=== PATIENT | male | born 1965 | race Caucasian/White ===

== ENCOUNTER 2016-09-22 09:20 | Outpatient (CLI) | payer MEDICAID | END 2016-09-22 09:21 | disposition home or self-care (01) | DX: R53.83 Other fatigue (principal); D64.9 Anemia, unspecified ==

== ENCOUNTER 2016-10-07 10:01 | Emergency (ER) | payer MEDICAID ==
[2016-10-07] MEDS ORDERED: SODIUM CHLORIDE 0.9% 1,000 ML IV ONE (10:25)
[2016-10-07] MEDS ORDERED: HYDROmorphone 1 MG/ML SYRINGE ONE ×2 (10:25→10:46)
[2016-10-07] MEDS ORDERED: ONDANSETRON 4 MG/2 ML VIAL ONE (10:25)
[2016-10-07] MEDS ORDERED: KETOROLAC 30 MG/ML VIAL ONE (11:41)
== END 2016-10-07 14:35 | disposition home or self-care (01) ==
DX: N13.2 Hydronephrosis with renal and ureteral calculous obstruction (principal); K57.30 Diverticulosis of large intestine without perforation or abscess without bleeding
CPT/HCPCS: 36415; 74176; 80053; 81001; 83690; 85025; 96374; 99283; 99284; J1170

== ENCOUNTER 2016-10-13 08:44 | Day surgery (SDC) | payer MEDICAID ==
[2016-10-13] MEDS ORDERED: LACTATED RINGERS 1,000 ML IV ONE (09:22)
[2016-10-13] MEDS ORDERED: fentaNYL 100 MCG/2 ML VIAL IVP ONE (09:40)
[2016-10-13] MEDS ORDERED: MIDAZOLAM 2 MG/2 ML VIAL IVP ONE (09:40)
== END 2016-10-13 08:45 | disposition home or self-care (01) ==
PROC: 0DJD8ZZ Inspection of Lower Intestinal Tract, Via Natural or Artificial Opening Endoscopic (ICD-10-PCS; principal; 2016-10-13 10:00)
DX: Z12.11 Encounter for screening for malignant neoplasm of colon (principal); K57.30 Diverticulosis of large intestine without perforation or abscess without bleeding; K64.8 Other hemorrhoids; I10 Essential (primary) hypertension; E66.9 Obesity, unspecified; Z68.34 Body mass index [BMI] 34.0-34.9, adult; K21.9 Gastro-esophageal reflux disease without esophagitis; G43.909 Migraine, unspecified, not intractable, without status migrainosus; M19.90 Unspecified osteoarthritis, unspecified site; F32.9 Major depressive disorder, single episode, unspecified; Z86.718 Personal history of other venous thrombosis and embolism
CPT/HCPCS: 45378; J7120

== ENCOUNTER 2017-07-30 20:05 | Outpatient (CLI) | payer MEDICAID ==
[2017-07-30 19:06] LABS: ALBUMIN/GLOBULIN RATIO 1.1 (1.0-2.2); BILIRUBIN,TOTAL 0.7 mg/dL (0.2-1.0); BUN - BLOOD UREA NITROGEN 21 mg/dL (6-20); CALCIUM 8.9 mg/dL (8.5-10.3); CARBON DIOXIDE - CO2 26 mmol/L (21-32); CHLORIDE 102 mmol/L (101-111); CHOL/HDL RATIO 3.4 (<5.0); CHOLESTEROL 201 mg/dL; CREATININE 1.1 mg/dL (0.6-1.2); GFR - MDRD 70 (>89); GLUCOSE 125 mg/dL (70-100); HDL CHOLESTEROL 60 mg/dL; POTASSIUM 3.8 mmol/L (3.5-5.0); SODIUM 135 mmol/L (135-145); TOTAL PROTEIN 7.3 g/dL (6.7-8.2); TRIGLYCERIDES 99 mg/dL; VLDL CHOLESTEROL 20 mg/dL
== END 2017-07-30 20:06 | disposition home or self-care (01) ==
LOC: LAB.S 20:05
PROVIDERS: ATTEND Nurse Practitioner Family
DX: E78.5 Hyperlipidemia, unspecified (principal)
CPT/HCPCS: 36415; 80053; 80061

== ENCOUNTER 2017-08-20 14:11 | Outpatient (CLI) | payer MEDICAID ==
[2017-08-20 20:15] LABS: HEMOGLOBIN A1C 0.66 g/dL
== END 2017-08-20 14:12 | disposition home or self-care (01) ==
LOC: LAB.S 14:11
PROVIDERS: ATTEND Nurse Practitioner Family
DX: R73.01 Impaired fasting glucose (principal)
CPT/HCPCS: 36415; 83036

== ENCOUNTER 2018-02-13 12:45 | Outpatient (CLI) | payer MEDICAID ==
[2018-02-13 18:10] LABS: HB2 TOTAL 16.2 g/dL; HEMOGLOBIN A1C 0.65 g/dL; HEMOGLOBIN A1C % 5.8 % (4.6-6.2)
[2018-02-13 18:13] LABS: ALBUMIN 4.1 g/dL (3.2-5.5); ALBUMIN/GLOBULIN RATIO 1.2 (1.0-2.2); CALCIUM 9.3 mg/dL (8.5-10.3); CREATININE 1.1 mg/dL (0.6-1.2); TOTAL PROTEIN 7.6 g/dL (6.7-8.2)
== END 2018-02-13 12:46 | disposition home or self-care (01) ==
LOC: LAB.F 12:45
PROVIDERS: ATTEND Nurse Practitioner Family
DX: R73.01 Impaired fasting glucose (principal)
CPT/HCPCS: 36415; 80053; 83036

== ENCOUNTER 2018-07-30 18:26 | Outpatient (CLI) | payer MEDICAID ==
--- NOTE | 2018-07-30 19:56 | Ultrasound Report ---
Reason: LEG EDEMA, LEFT Procedure Date: 07/30/2018 Accession Number: [id number] / [id number] Procedure: US - Duplex Ext Veins Left CPT Code: FULL RESULT: EXAM: LEFT LOWER EXTREMITY VENOUS ULTRASOUND. EXAM DATE: 07/30/2018 07:48 PM. CLINICAL HISTORY: Leg edema, left. COMPARISON: Duplex extremity veins left 06/15/2015 10:59 AM. TECHNIQUE: Real-time sonographic vascular imaging was performed by the sheet metal erector through the lower extremity utilizing both color-flow and Doppler spectral analysis. Multiple eligibility services representative static images were saved for review. FINDINGS: Common Femoral Vein (CFV): Normal. CFV-GSV Junction: Normal. Profunda Femoral Vein (PFV): Normal. Femoral Vein (FV) Prox: Nonocclusive thrombus. Femoral Vein (FV) Mid: Nonocclusive thrombus. Femoral Vein (FV) Dist: Nonocclusive thrombus. Popliteal Vein: Nonocclusive thrombus. Posterior Tibial Veins: Occluded. Peroneal Veins: Occluded. Contralateral Side CFV: Normal. Other: None. IMPRESSION: 1. 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 [facility] The above findings were discussed with Nereida Trevizo by Dr. Tru Powell at 19:59 hrs on 07/30/18.
== END 2018-07-30 18:27 | disposition home or self-care (01) ==
LOC: DI 18:26
PROVIDERS: ATTEND Nurse Practitioner Family
DX: I82.442 Acute embolism and thrombosis of left tibial vein (principal); I82.4Z2 Acute embolism and thrombosis of unspecified deep veins of left distal lower extremity

== ENCOUNTER 2018-08-14 15:40 | Outpatient (CLI) | payer MEDICAID ==
--- NOTE | 2018-08-15 10:42 | Ultrasound Report ---
Reason: LEG EDEMA,LEFT Procedure Date: 08/14/2018 Accession Number: [id number] / [id number] Procedure: US - Duplex Ext Veins Left CPT Code: FULL RESULT: EXAM: LEFT LOWER EXTREMITY VENOUS ULTRASOUND EXAM DATE: 08/14/2018 03:48 PM. CLINICAL HISTORY: Leg edema, left. COMPARISON: DUPLEX EXT VEINS LEFT 07/30/2018 6:38 PM. TECHNIQUE: Real-time sonographic vascular imaging was performed by the customer service associate through the lower extremity utilizing both color-flow and Doppler spectral analysis. Multiple pharmaceutical sales representative static images were saved for review. FINDINGS: Common Femoral Vein (CFV): Normal. CFV-GSV Junction: Normal. Profunda Femoral Vein (PFV): Normal. Femoral Vein (FV) Prox: Normal. Femoral Vein (FV) Mid: Normal. Femoral Vein (FV) Dist: Normal. Popliteal Vein: Normal. Posterior Tibial Veins: Normal. Peroneal Veins: Normal. Contralateral Side CFV: Normal. Other: None. IMPRESSION: No evidence for deep venous thrombosis. [facility]
== END 2018-08-14 15:41 | disposition home or self-care (01) ==
LOC: DI 15:40
PROVIDERS: ATTEND Nurse Practitioner Family
DX: R60.0 Localized edema (principal)